=== PATIENT | female | born 1950 ===

== ENCOUNTER 2018-05-13 11:39 | Outpatient (CLI) | payer OTHER ==
[~2018-05-13] VITALS: Ht 160 cm; Wt 54.4 kg
== END 2018-05-13 12:00 | disposition home or self-care (01) ==
LOC: OFIC 805 11:39
DX: J32.9 Chronic sinusitis, unspecified (principal); H74.8X3 Other specified disorders of middle ear and mastoid, bilateral; R09.81 Nasal congestion

== ENCOUNTER 2020-01-05 12:05 | Outpatient (CLI) | payer OTHER | END 2020-01-05 13:00 | disposition home or self-care (01) | LOC: OFIC 805 12:05 | PROVIDERS: ATTEND Otolaryngology | DX: R09.81 Nasal congestion (principal); H74.8X3 Other specified disorders of middle ear and mastoid, bilateral; J30.89 Other allergic rhinitis ==